=== PATIENT | female | born 1945 | race Caucasian/White ===

== ENCOUNTER 2016-05-10 09:06 | Day surgery (SDC) | payer OTHER ==
--- NOTE | 2016-05-09 21:40 | HISTORY & PHYSICAL EXAMINATION ---
DATE OF ADMISSION: 05/10/2016 DIAGNOSIS: Chronic sinusitis. HISTORY: A 71-year-old lady who presented with recurrent acute sinusitis, treated with multiple antibiotics this year, continues to have headaches and inability to breathe. PAST MEDICAL HISTORY: MEDICAL PROBLEMS: Asthma, kidney stones, acid reflux, and sleep apnea. PREVIOUS SURGERIES: Cholecystectomy, appendectomy, tonsillectomy, hysterectomy, tubal ligation, knee surgery. ALLERGIES: No known drug allergies. MEDICATIONS: Meloxicam, levothyroxine, Xyzal and omeprazole. FAMILY HISTORY: Negative. SOCIAL HISTORY: Nonsmoker. REVIEW OF SYSTEMS: Otherwise negative. PHYSICAL EXAMINATION: GENERAL: WNWD female. VITAL SIGNS: 5 feet 3, 176 pounds. HEAD: Normocephalic. EYES: Normal. EARS: Tympanic membranes intact. NOSE: Nasal passages show swollen turbinates with obstruction. THROAT: Oropharynx normal. NECK: Supple. HEART: RRR. LUNGS: Clear. ABDOMEN: Soft. GENITOURINARY: Deferred. EXTREMITIES: Full range of motion. IMPRESSION: Chronic sinusitis. PLAN: For endoscopic sinus surgery.
[~2016-05-10] VITALS: Ht 160 cm; Wt 77.3 kg
[~2016-05-10 09:06] MED LIST: ALBUAER19 INH; ALPR-411 PO; ASPI81TA28 PO; CEFAZOLIN 1000MG/55 ML D5W IV SCH; CHOL20007 PO; COEN1CAP7 PO; DOCU100C31 PO; LACTATED RINGER'S 1000ML 1,000 ML IV SCH; LEVO137T3 PO; MELO7.5T5 PO; TRAM-10 PO
[2016-05-10] MEDS ORDERED: ROCURONIUM BROMIDE 10 MG/ML 5 ML VIAL ONE (09:28)
[2016-05-10] MEDS ORDERED: PROPOFOL IV EMULSION 10 MG/ML 20 ML VIAL IV ONE (09:28)
[2016-05-10] MEDS ORDERED: DEXAMETHASONE SOD INJ 4 MG/ML VIAL ONE (09:28)
[2016-05-10] MEDS ORDERED: FENTANYL CITRATE INJ 50 MCG/1 ML 2 ML VIAL ONE ×2 (09:28→11:48)
[2016-05-10] MEDS ORDERED: ONDANSETRON INJ 2 MG/ML 2 ML VIAL ONE (09:28)
[2016-05-10] MEDS ORDERED: MIDAZOLAM HCL 1 MG/ML 2ML VIAL ONE (09:28)
[2016-05-10] MEDS ORDERED: LIDOCAINE HCL 2% 2 ML VIAL (20MG/ML) ONE (09:28)
[2016-05-10 09:30] VITALS: BP 152/77; PULSE 85; TEMP 36.3; O2SAT 99; Ht 160 cm; Wt 77.3 kg
[2016-05-10] MEDS ORDERED: FENTANYL CITRATE INJ 50 MCG/1 ML 2 ML VIAL IV PRN (10:15)
[2016-05-10] MEDS ORDERED: EpHEDrine SULFATE INJ 50 MG/ML AMP IV PRN (10:15)
[2016-05-10] MEDS ORDERED: LABETALOL HCL IV 5 MG/ML 20ML IV PRN (10:15)
[2016-05-10] MEDS ORDERED: HYDROmorphone INJ 1 MG/ML SYR IV PRN (10:15)
[2016-05-10] MEDS ORDERED: ATROPINE SULFATE 0.1 MG/ML 5ML SYR IV PRN (10:15)
[2016-05-10] MEDS ORDERED: MEPERIDINE HCL 25 MG/ML CARP IV PRN (10:15)
[2016-05-10] MEDS ORDERED: ONDANSETRON INJ 2 MG/ML 2 ML VIAL IV PRN (10:15)
--- NOTE | 2016-05-10 10:30 | History & Physical Bridge Note ---
H&P Re-Evaluation Bridge Note: I have examined the patient, reviewed the History & Physical and in the interval since the performance of the History & Physical I have noted the following changes of clinical significance: No changes noted
[2016-05-10] MEDS ORDERED: MUPIROCIN 2% OINT 22 GM TUBE ONE (10:37)
[2016-05-10] MEDS ORDERED: GELATIN SPONGE 12-7MM ONE (10:37)
[2016-05-10] MEDS ORDERED: LIDOCAINE 4% W/AFRIN NASAL SOLN 4ML ONE (10:39)
[2016-05-10] MEDS ORDERED: EpINEphrine INJ 1MG/ML AMP 1 MG/ML AMP ONE (10:39)
[2016-05-10] MEDS ORDERED: TRIAMCINOLONE ACET 40 MG/ML VIAL ONE (10:40)
[2016-05-10] MEDS ORDERED: CEFAZOLIN SOD 1 GM VIAL ONE (10:53)
[2016-05-10] MEDS ORDERED: HEMADERM ENT APPLICATOR KIT TOP ONE (12:00)
[2016-05-10] MEDS ORDERED: PHENYLEPHRINE 100MCG/ML 5ML SYR ONE (12:06)
[2016-05-10] MEDS ORDERED: ALBUTEROL HFA INHALER 8.5 GM INH ONE (12:16)
[2016-05-10] MEDS ORDERED: LIDOCAINE 2% W/EPI 1:100,000 20ML VIAL INJ ONE (12:17)
[2016-05-10] MEDS ORDERED: HYDROCODONE/ACETAMOPHEN 5/325MG TAB PO PRN ×2 (13:15)
[2016-05-10] MEDS ORDERED: SODIUM CHLORIDE 0.9% 1000ML 1,000 ML IV SCH (13:15)
--- NOTE | 2016-05-10 13:18 | Discharge Instructions ---
Discharge Instructions Admission Reason for Admission: Chronic Sinusitis Discharge Discharge Diagnosis / Problem: same Discharge Goals Goal(s): Therapeutic intervention Activity Recommendations Activity Limitations: resume your previous activity . Instructions / Follow-Up Instructions / Follow-Up ACTIVITY RECOMMENDATIONS: * Being up and around is good, but no strenuous activity, heavy lifting or physical exertion for one week. * Keep your head elevated 30 degrees when lying down or sleeping. * Do not blow your nose for 48 hours, sniff back instead. * Avoid hot showers. OVER THE COUNTER MEDICATIONS: * You may use Tylenol * Avoid aspirin or aspirin containing products, e.g. as they may increase bleeding. SPECIAL CARE INSTRUCTIONS: * Expect to have bloody drainage from your nose and/or down your throat for one to three days. Change drip pad as needed. * Begin irrigating your nose with saline solution today, at least six to ten times per day and sniff back to help remove old clots or crust. * You may experience nasal and facial congestion, pain and pressure, this is normal. * Please call with any significant and/or progressive pain, redness, swelling around the eyes, visual changes, fever of 101.5 degrees F, active bleeding or any problems or concerns. * If active bleeding occurs, spray the nose three times at one minute intervals with Afrin spray and call or cell phone: . If unable to reach the doctor, go to the nearest Emergency Department. Special Diet: * Avoid extremely hot fluids. FOLLOW UP VISIT: Follow-up Visit with Dr. Gates If not already scheduled, please call to schedule. Current Hospital Diet Patient's current hospital diet: Discharge Diet Recommended Diet: Regular Diet Procedures Procedures Performed: Endoscopic Sinus Surgery of Total Right and Left Ethmoidectomies, Right and Left Frontal and Maxillary Sinusotomies with Computer Guidance Pending Studies Studies pending at discharge: no Medical Emergencies . Who to Call and When: Medical Emergencies: If at any time you feel your situation is an emergency, please call 911 immediately. . Non-Emergent Contact Non-Emergency issues call your: Primary Care Provider . "Provider Documentation" section prepared by Kimberley Gates. VTE Core Measure Inpt VTE Proph given/why not?: SCD's [place] Drug Monitoring Program Search Results: no issues identified
[2016-05-10 13:20] VITALS: BP 117/73; PULSE 90; TEMP 37; O2SAT 99
[2016-05-10 13:50] VITALS: BP 134/73; PULSE 74; TEMP 36.8; O2SAT 100
--- NOTE | 2016-05-10 13:56 | OPERATIVE REPORT ---
DATE OF OPERATION: 05/10/2016 PREOPERATIVE DIAGNOSIS: Chronic sinusitis. POSTOPERATIVE DIAGNOSIS: Same. PROCEDURE: Right and left frontal, right and left total ethmoid and right and left maxillary sinus antrostomies. SURGEON: Dr. Gates. ANESTHESIA: General LMA. COMPLICATIONS: None. BLOOD LOSS: 40 mL. HISTORY OF PRESENT ILLNESS: A 71-year-old lady who has been treated for the entire year with multiple antibiotics, prednisone and also allergy management for recurrent acute episodes of sinusitis. She would never clear up, lost her smell and taste and was unable to breathe through her nose. Because of failure to respond to medical management, the patient requested definitive treatment. OPERATION AND FINDINGS: PROCEDURE: The patient brought to the operating room, placed supine position. General anesthesia was induced using LMA. Prepped with Betadine paint and draped in the usual sterile manner. The nose was decongested using cottonoids with a solution of 4 mL of 4% Xylocaine mixed with 1 mL of epinephrine. Injection of 2% Xylocaine 1:100,000 strength epinephrine was also used. The left nasofrontal duct was cannulated with the guidewire and with [employer] computer guidance and dilated using the 6 mm balloon. The guidewire was left in place as a marker. The frontal sinusotomy was performed by removing the anterior wall, then the posterior wall of the agger nasi cell along with supraethmoidal air cells. At this point, total ethmoidectomy was performed opening up the bullae ethmoidalis going through the ground lamella into the posterior ethmoid air cell delineating the posterior most ethmoid air cell, delineating the skull base superiorly and the lamina papyracea laterally and following these structures anteriorly exonerating all the posterior ethmoid air cells and then exonerating all the anterior ethmoid air cells up to the previously dilated nasal frontal duct. The nasal frontal duct was redilated with the 6 mm balloon until it was wide open leaving the mucosa in the nasofrontal duct intact. The maxillary sinus was cannulated with the guidewire and dilated using the 6 mm balloon. Attention was turned to the right side; however, the right nasofrontal duct could not be cannulated initially. Therefore, the shaver coupled with the [employer] device was used to open up the agger nasi cell of its anterior and posterior wall. At this point the nasofrontal duct was found behind the posterior wall of the agger nasi cell, cannulated with the guidewire with [employer] computer guidance and dilated using the 6 mm balloon again leaving the mucosa and the nasofrontal duct intact, otherwise the total ethmoidectomy, maxillary sinus antrostomy was performed in a similar manner. The right maxillary sinus could not be cannulated with wire and had to be opened using the seeker followed by using the shaver to open up the maxillary ostia to approximately 6 mm. The Propel stents were placed and Tanmay powder was used for hemostasis. The patient tolerated the procedure well and was taken to recovery area in satisfactory condition. I attest to the content of the Intraoperative Record and any orders documented therein. Any exceptio ns are noted below.
--- NOTE | 2016-05-10 14:03 | Anesthesiology Progress Note ---
Anesthesia Post Op Note Date & Time May 10, 2016 at 14:03 Vital Signs Pain Intensity: 0 Vital Signs Past 12 Hours Date Time Temp Pulse Resp B/P Pulse Ox O2 Delivery O2 Flow Rate FiO2 05/10/16 13:20 37 90 20 117/73 99 Room Air 0 05/10/16 13:10 36.6 82 17 131/73 97 Room Air 05/10/16 13:00 75 18 131/74 97 Room Air 05/10/16 12:50 71 12 144/81 100 Mask 10 05/10/16 12:40 89 19 160/89 100 Mask 10 05/10/16 12:31 36.3 93 16 178/103 100 Mask 10 05/10/16 09:30 36.3 85 18 152/77 99 Room Air 05/10/16 09:30 99 Room Air Notes Mental Status: alert / awake / arousable, participated in evaluation Pt Amnestic to Procedure: Yes Nausea / Vomiting: adequately controlled Pain: adequately controlled Airway Patency, RR, SpO2: stable & adequate BP & HR: stable & adequate Hydration State: stable & adequate Anesthetic Complications: no major complications apparent
== END 2016-05-10 14:00 | disposition home or self-care (01) ==
LOC: C.ACU 09:06
PROVIDERS: ATTEND Otolaryngology
DX: J32.9 Chronic sinusitis, unspecified (principal); J45.909 Unspecified asthma, uncomplicated; N20.0 Calculus of kidney; K21.9 Gastro-esophageal reflux disease without esophagitis; Z90.89 Acquired absence of other organs; Z98.890 Other specified postprocedural states; G47.30 Sleep apnea, unspecified